=== PATIENT | female | born 1935 | race Two or more races ===

== ENCOUNTER 2018-01-23 11:05 | Inpatient (IN) | payer OTHER ==
[~2018-01-23] VITALS: Ht 162.6 cm; Wt 76.2 kg
[2018-01-23] MEDS ORDERED: ARICEPT5 MG (11:11)
[2018-01-23] MEDS ORDERED: SEROQUEL25 MG (11:11)
[2018-01-23] MEDS ORDERED: DITROPAN XL10 MG (11:11)
[2018-01-23] MEDS ORDERED: AVAPRO150 MG (11:12)
[2018-01-23] MEDS ORDERED: SOTALOL80 MG (11:12)
[2018-01-23] MEDS ORDERED: LIPITOR20 MG (11:12)
[2018-01-23] MEDS ORDERED: CYMBALTA60 MG (11:13)
[2018-01-23] MEDS ORDERED: NAMENDA5 MG (11:13)
[2018-01-23] MEDS ORDERED: ASA-EC81 MG (11:14)
[2018-01-23] MEDS ORDERED: VITAMIN D1000 UNIT (11:14)
[2018-01-28] MEDS ORDERED: ARICEPT5 MG PO (12:40)
[2018-01-28] MEDS ORDERED: AVAPRO150 MG PO (12:40)
[2018-01-28] MEDS ORDERED: Lipitor 10MG TABLET PO (12:40)
[2018-01-28] MEDS ORDERED: POM (MEDICAMENTO EN PO (12:40)
[2018-01-28] MEDS ORDERED: CYMBALTA60 MG PO (12:40)
[2018-01-28] MEDS ORDERED: NAMENDA5 MG PO (12:40)
[2018-01-28] MEDS ORDERED: CEFDINIR300 MG PO (12:40)
== END 2018-01-28 15:31 | disposition home or self-care (01) | DRG 101 ==
LOC: ER 11:05 → MEDI 20:20
PROC: 4A033R1 Measurement of Arterial Saturation, Peripheral, Percutaneous Approach (ICD-10-PCS; principal; 2018-01-23)
PROC: 3E0336Z Introduction of Nutritional Substance into Peripheral Vein, Percutaneous Approach (ICD-10-PCS; 2018-01-23)
PROC: BW28ZZZ Computerized Tomography (CT Scan) of Head (ICD-10-PCS; 2018-01-23)
PROC: 4A12X4Z Monitoring of Cardiac Electrical Activity, External Approach (ICD-10-PCS; 2018-01-23)
PROC: 02HV33Z Insertion of Infusion Device into Superior Vena Cava, Percutaneous Approach (ICD-10-PCS; 2018-01-24)
PROC: B246ZZZ Ultrasonography of Right and Left Heart (ICD-10-PCS; 2018-01-24)
PROC: 4A00X4Z Measurement of Central Nervous Electrical Activity, External Approach (ICD-10-PCS; 2018-01-25)
DX: G40.89 Other seizures (principal); K92.0 Hematemesis; F02.81 Dementia in other diseases classified elsewhere, unspecified severity, with behavioral disturbance; N39.0 Urinary tract infection, site not specified; J98.11 Atelectasis; R09.02 Hypoxemia; E78.4 Other hyperlipidemia; G30.8 Other Alzheimer's disease; E86.0 Dehydration; I35.2 Nonrheumatic aortic (valve) stenosis with insufficiency; Z66 Do not resuscitate; I11.9 Hypertensive heart disease without heart failure

== ENCOUNTER 2018-08-16 12:57 | Inpatient (IN) | payer OTHER ==
[~2018-08-16] VITALS: Ht 165.1 cm; Wt 73.6 kg
[~2018-08-16 12:57] MED LIST: ARICEPT5 MG; ARICEPT5 MG PO; ASA-EC81 MG; AVAPRO150 MG; AVAPRO150 MG PO; CEFDINIR300 MG PO; CYMBALTA60 MG; CYMBALTA60 MG PO; DITROPAN XL10 MG; LIPITOR20 MG; Lipitor 10MG TABLET PO; NAMENDA5 MG; NAMENDA5 MG PO; POM (MEDICAMENTO EN PO; SEROQUEL25 MG; SOTALOL80 MG; VITAMIN D1000 UNIT
[2018-08-16] MEDS ORDERED: ARICEPT10 MG (13:38)
[2018-08-16] MEDS ORDERED: RISPERDAL0.5 MG (13:46)
[2018-08-16] MEDS ORDERED: VITAMINA D (13:47)
[2018-08-16] MEDS ORDERED: BUSPAR 5MG (13:49)
[2018-08-16] MEDS ORDERED: NIFE60TA3 (13:50)
--- NOTE | 2018-08-16 13:52 | NUR ---
SE RECIBE PTE. FEMENINA EN AMBULANCIA DE [facility] ER PARAMEDICOS REF. LOS ACTIVARON POR SOB. Y PTE. PRESENTO MOVIMIENTOS INVOLUNTARIOS AL LLEGAR PRESENTO OXIGENO EN 100 CON OXIGENO DE AMBULANCIA PTE. LLEGA HIPOACTIVA Y NO RESPONDIA. SE UBICA EN CIRILO 1 DE CRITICO. PTE. CON HEMATOMA EN AMBAS TERRA DE SINAI PICHADO ANTES DE LLEGAR.
[2018-08-21] MEDS ORDERED: BUSPIRONE HCL5 MG PO (11:34)
[2018-08-21] MEDS ORDERED: VITAMIN D35000 UNI1 PO (11:34)
[2018-08-21] MEDS ORDERED: SOTALOL80 MG PO (11:35)
== END 2018-08-25 18:42 | DRG 306 ==
LOC: ER 12:57 → SURH 17:49 → SEC-K 17:49 → MEDJ 20:39 → SURG 21:11 → SURH 21:55
PROVIDERS: ADMIT Internal Medicine Geriatric Medicine
PROC: 4A033R1 Measurement of Arterial Saturation, Peripheral, Percutaneous Approach (ICD-10-PCS; 2018-08-16)
PROC: 0T9B70Z Drainage of Bladder with Drainage Device, Via Natural or Artificial Opening (ICD-10-PCS; 2018-08-16)
PROC: 4A12X4Z Monitoring of Cardiac Electrical Activity, External Approach (ICD-10-PCS; 2018-08-16)
PROC: 8E0ZXY6 Isolation (ICD-10-PCS; 2018-08-16)
PROC: BW24ZZZ Computerized Tomography (CT Scan) of Chest and Abdomen (ICD-10-PCS; principal; 2018-08-17)
PROC: B246ZZZ Ultrasonography of Right and Left Heart (ICD-10-PCS; 2018-08-17)
PROC: 3E0F7GC Introduction of Other Therapeutic Substance into Respiratory Tract, Via Natural or Artificial Opening (ICD-10-PCS; 2018-08-24)
DX: I35.2 Nonrheumatic aortic (valve) stenosis with insufficiency (principal); I33.0 Acute and subacute infective endocarditis; F05 Delirium due to known physiological condition; N39.0 Urinary tract infection, site not specified; J98.11 Atelectasis; G40.89 Other seizures; K92.0 Hematemesis; R65.10 Systemic inflammatory response syndrome (SIRS) of non-infectious origin without acute organ dysfunction; K92.1 Melena; I48.1 Persistent atrial fibrillation; E86.0 Dehydration; D72.828 Other elevated white blood cell count; I11.9 Hypertensive heart disease without heart failure; E87.8 Other disorders of electrolyte and fluid balance, not elsewhere classified; B96.0 Mycoplasma pneumoniae [M. pneumoniae] as the cause of diseases classified elsewhere; Z66 Do not resuscitate; D12.0 Benign neoplasm of cecum; R53.83 Other fatigue; M12.511 Traumatic arthropathy, right shoulder; M12.512 Traumatic arthropathy, left shoulder; Z16.12 Extended spectrum beta lactamase (ESBL) resistance; B96.29 Other Escherichia coli [E. coli] as the cause of diseases classified elsewhere; R31.0 Gross hematuria

== ENCOUNTER 2018-10-12 03:50 | Inpatient (IN) | payer OTHER ==
[~2018-10-12] VITALS: Ht 152.4 cm; Wt 68.0 kg
[~2018-10-12 03:50] MED LIST changes: +ARICEPT10 MG; +BUSPAR 5MG; +BUSPIRONE HCL5 MG PO; +NIFE60TA3; +RISPERDAL0.5 MG; +SOTALOL80 MG PO; +VITAMIN D35000 UNI1 PO; +VITAMINA D
--- NOTE | 2018-10-12 04:25 | NUR ---
SE RECIBE PTE EN AMBULANCIA DORMIDA EN AMBULANCIA,LLEGO TRASLADADA DEL [facility] ,LLEGO CANALIZADA MANO IZQUIERDA CONUN ROCEPHIN,Y UN TRIDIL,REFIEREACOMPANANTE QUE TUVO HEATH CONVULCION,REFIEREN PARAMEDICOSQUE INFARTO.
--- NOTE | 2018-10-12 07:15 | NUR ---
SE RECIBE PACIENTE EN CIRILO.PROCEDENTE DE SERVICIO DE EMERGENCIAS MEDIDAS ACOMPANADO POR CUIDADORDA.ES COLOCA EN CAMA NUM-1 DE LA [facility] DE LA LA DE EMERGENCIAS.NO ESTA ALERTA NI ORIENTADA.NO SE EXPRESA EN FORMA COHERENTE. MUESTRAS TOMADAS CHAVA ORDENADAS.MEDICAMENTOS SON ADMINISTRADOS CHAVA ORDENADOS.ESTA RESPIRATORIAMENTE ASISTIDA CON O2 POR MEDIO DE VENTURY MASK AL 35%. ES MANTENIDA CON CABEZERA A 30 GRADOS,BARANDAS ELEVADAS,TIMBRE ACCESIBLE Y EN OBSERVACION COSNTANTE POR CAMBIOS EN CONDICION.
--- NOTE | 2018-10-12 08:29 | NUR ---
SE RECIBE PTE DEL TURNO ANTERIOR, DESORIENTADA. SIN RESPUESTA A ESTIMULO, VERBAL O TACTIL. SE OBSERVA CON VENTURY MASK AL 35% EL CUAL TOLERA, AL MOMENTO SATURANDO 100%. PIEL FRIA AL TACTO, EXTREMIDADES SUPERIORES E INFERIORES CIANOTICAS Y GOLD. ABDOMEN DEPRESIBLE. PTE CON VERNON PATENTE, CON FECHA DE 10/12/18, CON APROXIMADAMENTE 100ML DE ORINA COLOR AMARILLO MARCELLO. IV'S PATENTES Y LIBRES DE EDEMA O ERITEMA, CON #20 EN HOMBRO LT CON TRIDIL 50MG/250ML @ 1ML/HR Y #24 EN MANO RT CON 0.9% NSS @30ML/HR. PTE PENDIENTE A CONSULTA CON DR MONAE, EL CUAL PASA VISITA. SE MANTIENE BAJO OBSERVACION EN CAMA NIVEL MAS BAJO, AGRAWAL DE IDENTIFICACION Y BARANDAS ELEVADAS POR PRECAUCION, CONECTADA A MONITOR CARDIACO Y OXIMETRIA DE PULSO.
[2018-10-31] MEDS ORDERED: NIFE60TA3 PO (13:36)
[2018-10-31] MEDS ORDERED: CYMBALTA60 MG PO (13:36)
[2018-10-31] MEDS ORDERED: ELIQUIS2.5 MG PO (13:36)
[2018-10-31] MEDS ORDERED: ARICEPT10 MG PO (13:36)
[2018-10-31] MEDS ORDERED: NAMENDA5 MG PO (13:36)
[2018-10-31] MEDS ORDERED: Pulmicort 0.5 MG/2 M IH (13:36)
[2018-10-31] MEDS ORDERED: DOXYCYCLINE HY100 M2 PO (13:36)
[2018-10-31] MEDS ORDERED: DILTIAZEM HCL30 MG PO (13:36)
[2018-10-31] MEDS ORDERED: KEPPRA100 MG/1 M PO (13:36)
[2018-10-31] MEDS ORDERED: VITAMIN D35000 UNI1 PO (13:36)
[2018-10-31] MEDS ORDERED: Xopenex 1.25 MG/3 ML IH (13:36)
[2018-10-31] MEDS ORDERED: AVAPRO150 MG PO (13:36)
[2018-10-31] MEDS ORDERED: SOTALOL80 MG PO (13:36)
== END 2018-10-31 18:16 | disposition other institution (70) | DRG 308 ==
LOC: ER 03:50 → SURH 08:37 → MEDJ 08:37 → SURH 08:37 → SEC-K 08:37 → SURH 12:04 → MEDJ 13:35
PROVIDERS: ADMIT Internal Medicine Geriatric Medicine
PROC: 4A12X4Z Monitoring of Cardiac Electrical Activity, External Approach (ICD-10-PCS; principal; 2018-10-12)
PROC: 4A033R1 Measurement of Arterial Saturation, Peripheral, Percutaneous Approach (ICD-10-PCS; 2018-10-12)
PROC: B246ZZZ Ultrasonography of Right and Left Heart (ICD-10-PCS; 2018-10-12)
PROC: 02HV33Z Insertion of Infusion Device into Superior Vena Cava, Percutaneous Approach (ICD-10-PCS; 2018-10-14)
PROC: 8E0ZXY6 Isolation (ICD-10-PCS; 2018-10-15)
PROC: 3E0F7GC Introduction of Other Therapeutic Substance into Respiratory Tract, Via Natural or Artificial Opening (ICD-10-PCS; 2018-10-16)
PROC: B246ZZZ Ultrasonography of Right and Left Heart (ICD-10-PCS; 2018-10-17)
PROC: 02HV33Z Insertion of Infusion Device into Superior Vena Cava, Percutaneous Approach (ICD-10-PCS; 2018-10-18)
PROC: 0BH17EZ Insertion of Endotracheal Airway into Trachea, Via Natural or Artificial Opening (ICD-10-PCS; 2018-10-19)
PROC: 5A1955Z Respiratory Ventilation, Greater than 96 Consecutive Hours (ICD-10-PCS; 2018-10-19)
PROC: 3E0336Z Introduction of Nutritional Substance into Peripheral Vein, Percutaneous Approach (ICD-10-PCS; 2018-10-22)
PROC: BB24ZZZ Computerized Tomography (CT Scan) of Bilateral Lungs (ICD-10-PCS; 2018-10-26)
DX: I48.0 Paroxysmal atrial fibrillation (principal); J96.01 Acute respiratory failure with hypoxia; J69.0 Pneumonitis due to inhalation of food and vomit; R65.10 Systemic inflammatory response syndrome (SIRS) of non-infectious origin without acute organ dysfunction; N39.0 Urinary tract infection, site not specified; J98.11 Atelectasis; J45.902 Unspecified asthma with status asthmaticus; J45.901 Unspecified asthma with (acute) exacerbation; G30.8 Other Alzheimer's disease; F02.80 Dementia in other diseases classified elsewhere, unspecified severity, without behavioral disturbance, psychotic disturbance, mood disturbance, and anxiety; I35.0 Nonrheumatic aortic (valve) stenosis; I25.10 Atherosclerotic heart disease of native coronary artery without angina pectoris; I73.89 Other specified peripheral vascular diseases; Z74.01 Bed confinement status; D72.828 Other elevated white blood cell count; Z16.12 Extended spectrum beta lactamase (ESBL) resistance; B96.29 Other Escherichia coli [E. coli] as the cause of diseases classified elsewhere; E86.0 Dehydration; I11.9 Hypertensive heart disease without heart failure; B95.62 Methicillin resistant Staphylococcus aureus infection as the cause of diseases classified elsewhere; M81.0 Age-related osteoporosis without current pathological fracture; S00.81XA Abrasion of other part of head, initial encounter; S00.31XA Abrasion of nose, initial encounter; S80.812A Abrasion, left lower leg, initial encounter